=== PATIENT | female | born 1960 | race Caucasian/White ===

== ENCOUNTER 2018-08-14 14:34 | Outpatient (REF) | payer BC, SELFPAY ==
--- NOTE | 2018-08-14 14:15 | PAPFT_PTH ---
PATIENT: Nupur Honeycutt LOC: [facility] U#:[id number] AGE/SX: 58/F ROOM: RE08/14/[address]: Leonor Cummings MD : 1960 BED: DIS: 08/14/2018 SPEC #: [id number] RECD: 08/14/18 17:37 STATUS: ALYSON REQ #: [id number] JOCELYN: 08/14/18 14:[address]: Leonor Cummings DEPT: [facility] Cytology RECD BY: Ann Franz ENTERED: 08/14/18 17:38 SP TYPE: PAPFT OTHR DR: Erica Haywood Tissues: 1 - CX/ENDOCX FOR PAP SMEARS Procedures: PAP THIN PREP/UVM Screening HPV DNA PROBE Comments: [id number]
== END 2018-08-14 14:54 ==
LOC: LBN 14:34
PROVIDERS: PCP Family Medicine; Visit Provider Obstetrics & Gynecology
DX: Z12.4 Encounter for screening for malignant neoplasm of cervix (principal); Z11.51 Encounter for screening for human papillomavirus (HPV)
CPT/HCPCS: 88142; 87624

== ENCOUNTER 2019-03-29 13:04 | Outpatient (REF) | payer BC, SELFPAY ==
[2019-03-29 19:08] LABS: Hemoglobin A1C 5.8 % (4.5-6.2)
[2019-03-29 21:13] LABS: Calculated LDL 111 mg/dL; Cholesterol 202 mg/dL (50-200); HDL Cholesterol 67 mg/dL (40-60); Triglyceride 124 mg/dL (30-150)
== END 2019-03-29 13:24 ==
LOC: NCHCN 13:04
PROVIDERS: PCP Family Medicine; Visit Provider Family Medicine
DX: R73.03 Prediabetes (principal); Z00.00 Encounter for general adult medical examination without abnormal findings; Z13.220 Encounter for screening for lipoid disorders
CPT/HCPCS: 80061; 83721; 83036

== ENCOUNTER 2019-06-14 00:54 | Outpatient (CLI) | payer BC, SELFPAY ==
--- NOTE | 2019-06-14 08:50 | DI.MAMMO_ITS ---
SYMPTOM/DIAGNOSIS: ROUTINE SCREENING Z12.31 MAMMOGRAM: 06/14 Mammograms were interpreted according to the usual protocol including computer analysis with CAD system, tomosynthesis and C view imaging. The breasts are heterogeneously dense. No dominant mass or clumped microcalcification is identified in either breast. The current examination is compared with previous examinations including July 2017 and there has been no gross interval change in appearance in comparison with the previous studies. CONCLUSION: No specific evidence of malignancy a;t this time. Routine screening examinations are suggested at yearly intervals in this age group according to the ACS/ACR guidelines. Category 1, breast density category C. MQSA ASSESSMENT OF FINDINGS: Negative. Category 1. Patient will receive a letter notifying them of these results. Bi-RADS category C. The breasts are heterogeneously dense, which may obscure small masses.
== END 2019-06-14 01:14 ==
PROVIDERS: PCP Family Medicine; Visit Provider Family Medicine
DX: Z12.31 Encounter for screening mammogram for malignant neoplasm of breast (principal)
CPT/HCPCS: 77063; 77067

== ENCOUNTER 2022-01-11 01:04 | Outpatient (CLI) | payer BC, SELFPAY ==
--- NOTE | 2022-01-11 14:00 | DI.MAMMO_ITS ---
Exam(s) MAMMO SCREENING EXAM: MAMMO SCREENING CLINICAL HISTORY: SCREENING, Z12.31 TECHNIQUE: Mammograms were interpreted according to the usual protocol including computer analysis w [employer] CAD system, tomosynthesis and C-view imaging. COMPARISON: 2011 through 2018 FINDINGS: The breasts are composed of heterogeneously dense fibroglandular densities, Breast Density category C . No suspicious masses or suspicious microcalcifications are seen. No skin thickening or abnormal axillary lymph nodes are seen. There has been no significant change from prior exams. IMPRESSION: BI-RADS Category 1, Negative mammogram. Yearly screening mammography is recommended. Breast Density Category C, heterogeneously Dense. The mammogram demonstrates the patient's breast tissue is dense. Dense breast tissue is very common a nd is not abnormal but dense breast tissue can make it harder to find cancer on a mammogram. Also, de nse breast tissue may increase breast cancer risk. This information about the result of the mammogram report was provided to the patient to raise their awareness. Use this report when you speak with the patient about their risks for breast cancer, which includes their family history. At that time, you may recommend additional screening tests (Ultrasound or MRI) as they might be useful based on their r isk. A negative radiographic report should not delay biopsy if a dominant or clinically suspicious mass is present. Up to ten percent of cancers are not identified on mammography. A negative report may reinforce clinical impression. Adenosis and dense breasts may obscure an underlying neoplasm. False positive reports average 6 to 10%.
== END 2022-01-11 01:24 ==
PROVIDERS: PCP Family Medicine; Visit Provider Family Medicine
DX: Z12.31 Encounter for screening mammogram for malignant neoplasm of breast (principal)
CPT/HCPCS: 77063; 77067

== ENCOUNTER 2022-12-10 15:42 | Outpatient (REF) | payer BC, SELFPAY ==
[2022-12-10 18:48] LABS: Calculated LDL 121 mg/dL (<100); Cholesterol 200 mg/dL (<200); HDL Cholesterol 65 mg/dL (40-60); Triglyceride 70 mg/dL (<150)
[2022-12-10 19:09] LABS: Hemoglobin A1C 5.8 % (<5.7)
== END 2022-12-10 15:43 | disposition home or self-care (01) ==
LOC: NCHCN 15:42
PROVIDERS: PCP Family Medicine; Visit Provider Family Medicine
DX: R73.03 Prediabetes (principal); Z00.00 Encounter for general adult medical examination without abnormal findings
CPT/HCPCS: 80061; 83036

== ENCOUNTER 2023-08-19 16:26 | Outpatient (REF) | payer BC, SELFPAY ==
--- NOTE | 2023-08-19 13:40 | PAPFT_PTH ---
PATIENT: Nupur Honeycutt LOC: [facility] U#:[id number] AGE/SX: 63/F ROOM: RE08/19/[address]: Kaitlin Irizarry : 1960 BED: DIS: 08/19/2023 SPEC #: [id number] RECD: 08/19/23 17:21 STATUS: ALYSON REChuck #: [id number] JOCELYN: 08/19/23 13:[address]: Kaitlin Irizarry DEPT: [facility] Cytology RECD BY: Ann Franz ENTERED: 08/19/23 17:21 SP TYPE: PAPFT OTHR DR: Erica Haywood Tissues: 1 - CX/ENDOCX FOR PAP SMEARS Procedures: PAP THIN PREP/UVM Screening HPV DNA PROBE Comments: [id number]
== END 2023-08-19 16:27 | disposition home or self-care (01) ==
LOC: LBN 16:26
PROVIDERS: PCP Family Medicine; Visit Provider Advanced Practice Midwife
DX: Z12.4 Encounter for screening for malignant neoplasm of cervix (principal); Z11.51 Encounter for screening for human papillomavirus (HPV)
CPT/HCPCS: 88142; 87624

== ENCOUNTER 2024-06-15 01:21 | Outpatient (CLI) | payer BC, SELFPAY ==
[2024-06-15 13:14] LABS: HCT 39.5 % (36.0-46.0); MCH 31.8 pg (27.0-33.0); MCHC 32.9 % (32.0-36.0); MCV 97 fL (80-95); Platelet Count 254 10^3/uL (130-400); RBC 4.09 10^6/uL (3.93-5.22); RDW 12.9 % (11.7-14.6); RDW-SD 46.1 fL; WBC 5.76 10^3/uL (4.4-10.8)
[2024-06-15 14:00] LABS: ALT 18 U/L (14-59); AST 14 U/L (15-37); Albumin 3.7 g/dL (3.4-5.0); Alkaline Phosphatase 92 U/L (46-116); Anion Gap 9.4 mmol/L (3-11); BUN 19 mg/dL (7-18); Bilirubin, Total 0.39 mg/dL (0.2-1.0); CO2 28.6 mmol/L (21.0-32.0); CREATININE 0.8 mg/dL (0.55-1.02); Calcium 8.7 mg/dL (8.5-10.1); Chloride 104 mmol/L (98-107); Estimated GFR 82.74 (mL/min/1.73m2); Glucose 108 mg/dL (74-106); Potassium 3.8 mmol/L (3.5-5.1); Sodium 142 mmol/L (136-145); TSH (W/Ref FT4) 0.66 uIU/mL (0.36-3.74); Total Protein 7.1 g/dL (6.4-8.2)
== END 2024-06-15 01:22 | disposition home or self-care (01) ==
LOC: LBO 01:21
PROVIDERS: PCP Family Medicine; Visit Provider Family Medicine
DX: R63.4 Abnormal weight loss (principal)
CPT/HCPCS: 36415; 80053; 85027; 84443

== ENCOUNTER 2024-08-15 16:47 | Outpatient (REF) | payer BC, SELFPAY ==
[2024-08-15 19:18] LABS: Hemoglobin A1C 5.6 % (<5.7)
== END 2024-08-15 16:48 | disposition home or self-care (01) ==
LOC: NCHCN 16:47
PROVIDERS: PCP Family Medicine; Visit Provider Family Medicine
DX: R79.89 Other specified abnormal findings of blood chemistry (principal); Z13.1 Encounter for screening for diabetes mellitus
CPT/HCPCS: 83036

== ENCOUNTER 2024-11-28 01:46 | Outpatient (CLI) | payer BC, SELFPAY ==
--- NOTE | 2024-11-28 | DI.MAMMO_ITS ---
Exam(s) MAMMO SCREENING EXAM: MAMMO SCREENING CLINICAL HISTORY: SCREENING, Z12.31 TECHNIQUE: Mammograms were interpreted according to the usual protocol including computer analysis w [employer] CAD system, tomosynthesis and C-view imaging. COMPARISON: 2014 through 2021 FINDINGS: The breasts are composed of heterogeneously dense fibroglandular densities, Breast Density category C . No suspicious masses or suspicious microcalcifications are seen. No skin thickening or abnormal axillary lymph nodes are seen. There has been no significant change from prior exams. IMPRESSION: BI-RADS Category 1, Negative mammogram. Yearly screening mammography is recommended. Breast Density Category C, heterogeneously Dense. The mammogram demonstrates the patient's breast tissue is dense. Dense breast tissue is very common a nd is not abnormal but dense breast tissue can make it harder to find cancer on a mammogram. Also, de nse breast tissue may increase breast cancer risk. This information about the result of the mammogram report was provided to the patient to raise their awareness. Use this report when you speak with the patient about their risks for breast cancer, which includes their family history. At that time, you may recommend additional screening tests (Ultrasound or MRI) as they might be useful based on their r isk. A negative radiographic report should not delay biopsy if a dominant or clinically suspicious mass is present. Up to ten percent of cancers are not identified on mammography. A negative report may reinforce clinical impression. Adenosis and dense breasts may obscure an underlying neoplasm. False positive reports average 6 to 10%.
== END 2024-11-28 02:06 ==
LOC: DI 01:46
PROVIDERS: PCP Family Medicine; Visit Provider Family Medicine
DX: Z12.31 Encounter for screening mammogram for malignant neoplasm of breast (principal); R92.333 Mammographic heterogeneous density, bilateral breasts
CPT/HCPCS: 77063; 77067